=== PATIENT | male | born 1965 | race Caucasian/White ===

== ENCOUNTER 2016-11-27 14:21 | Emergency (ER) | payer OTHER ==
[~2016-11-27] VITALS: Ht 180.3 cm; Wt 102.2 kg
[~2016-11-27 14:21] MED LIST: CLONAZEPAM0.5 MG PO; LIBRIUM25 MG PO; WELLBUTRIN PO; ZOLOFT100 MG PO
[2016-11-27 14:26] VITALS: BP 134/93
== END 2016-11-27 15:34 | disposition left against medical advice (07) ==
LOC: EME 14:21
DX: Z99.89 Dependence on other enabling machines and devices (principal); Z53.21 Procedure and treatment not carried out due to patient leaving prior to being seen by health care provider